=== PATIENT | male | born 1950 | race Caucasian/White ===

== ENCOUNTER 2019-07-15 14:55 | Inpatient (IN) | payer MEDICARE, OTHER ==
[~2019-07-15] VITALS: Ht 180.3 cm; Wt 88.2 kg
[2019-07-15] MEDS ORDERED: BAYER CHEWABLE81 MG PO (15:34)
[2019-07-15] MEDS ORDERED: K-TAB10 MEQ PO (15:35)
[2019-07-15] MEDS ORDERED: COREG12.5 MG PO (15:36)
[2019-07-15] MEDS ORDERED: PRAVACHOL40 MG PO (15:36)
[2019-07-15 16:05] LABS: BASOPHILS 0.4 % (0-2); EOSINOPHILS 1.6 % (0-7); HEMOGLOBIN 16.3 g/dL (13.5-17.5); IMMATURE GRANULOCYTES 0.3 % (0-5); LYMPHOCYTES 21.8 % (15-50); MCH 31.3 pg (26.0-34.0); MCHC 33.3 g/dL (31.0-37.0); MCV 94.2 fL (80.0-100.0); MEAN PLATELET VOLUME 9.7 fL (7.4-10.4); MONOCYTES 10.5 % (2-11); NEUTROPHILS 65.4 % (40-80); PLATELET COUNT 284 10x3/uL (130-400); RDW 13.4 % (11.5-14.5); WBC 7.7 10x3/uL (4.8-10.8)
[2019-07-15 16:10] LABS: CALC OSMOLALITY 276 mosm/kg (275-300); CALCIUM 9.2 mg/dL (8.5-10.1); CHLORIDE - SERUM 102 mmol/L (98-107); CREATININE - SERUM 0.9 mg/dL (0.6-1.3); GLUCOSE 89 mg/dL (74-106); POTASSIUM - SERUM 4.3 mmol/L (3.5-5.1); SODIUM 139 mmol/L (136-145); UREA NITROGEN 13 mg/dL (7-18); eGFR NON AFRICAN AMERICAN 89 mL/min (90-120)
[2019-07-15 16:13] VITALS: BMI 27.1
[2019-07-15 22:32] VITALS: BP 113/66; BMI 27.1
[2019-07-16 00:30] VITALS: BP 127/51
--- NOTE | 2019-07-16 02:39 | NUR ---
PATIENT IS RESTING QUIETLY, IV FLUIDS INFUSING. DRESSING TO LEFT FOOT REMAINS INTACT. NO EVIDENCE OF PAIN. WILL CONTINUE TO MONITO
[2019-07-16 05:00] VITALS: BP 133/69
[2019-07-16 08:37] VITALS: BP 160/83
--- NOTE | 2019-07-16 09:38 | NUR ---
PT ALERT X 4. BREATH SOUNDS CLEAR BILAT. LEFT SIDED WEAKNESS FROM PREVIOUS CVA. DRESSING TO LEFT FOOT CDI. OPEN WOUND TO RIGHT HEEL. IV TO RIGHT AC, PATENT, DRESSING CDI. FAMILY AT BEDSIDE. BED LOW, CALL LIGHT IN REACH. NO OTHER NEEDS AT THIS TIME.
[2019-07-16 13:13] VITALS: BP 127/68
[2019-07-16 16:18] VITALS: BP 145/79
--- NOTE | 2019-07-16 19:00 | NUR ---
BEDSIDE REPORT RECEIVED AND CARE OF PT ASSUMED. PT LYING IN SUPINE POSITION WATCHING TV. IV TO RIGHT AC PATENT WITH 1/2 NS INFUSING AT 50 ML/HR. DRESSINGS ON BILATERAL FEET CLEAN AND DRY. TELEMETRY IN PLACE AND READING A-FIB AT THIS ASSESSMENT.
--- NOTE | 2019-07-16 19:53 | NUR ---
HS MEDICATIONS GIVEN. WILL CONTINUE TO MONITOR FOR NEEDS.
[2019-07-16 19:58] VITALS: BP 101/55
--- NOTE | 2019-07-16 22:24 | NUR ---
GAVE MORPHINE IVP PER REQUEST FOR PAIN, PER PRN ORDER.
[2019-07-17] VITALS: BP 94/42
[2019-07-17 04:00] VITALS: BP 97/48
[2019-07-17 06:41] LABS: CALC OSMOLALITY 279 mosm/kg (275-300); CALCIUM 8.6 mg/dL (8.5-10.1); CHLORIDE - SERUM 106 mmol/L (98-107); GLUCOSE 103 mg/dL (74-106); MAGNESIUM - SERUM 2.2 mg/dL (1.8-2.4); PHOSPHOROUS 3.4 mg/dL (2.5-4.9); POTASSIUM - SERUM 3.7 mmol/L (3.5-5.1); SODIUM 140 mmol/L (136-145); UREA NITROGEN 14 mg/dL (7-18); eGFR NON AFRICAN AMERICAN 78 mL/min (90-120)
[2019-07-17 06:45] LABS: CARBON DIOXIDE 25.4 mmol/L (21.0-32.0)
[2019-07-17 06:50] LABS: BASOPHILS 0.2 % (0-2); EOSINOPHILS 1.1 % (0-7); HEMATOCRIT 42.7 % (42.0-54.0); HEMOGLOBIN 14.2 g/dL (13.5-17.5); IMMATURE GRANULOCYTES 0.2 % (0-5); LYMPHOCYTES 15.7 % (15-50); MCH 31.1 pg (26.0-34.0); MCHC 33.3 g/dL (31.0-37.0); MCV 93.6 fL (80.0-100.0); MEAN PLATELET VOLUME 9.6 fL (7.4-10.4); MONOCYTES 14.8 % (2-11); PLATELET COUNT 231 10x3/uL (130-400); RBC 4.56 10x6/uL (4.20-6.10); RDW 14.1 % (11.5-14.5); WBC 9.6 10x3/uL (4.8-10.8)
[2019-07-17 07:18] LABS: INR 1.19 (0.85-1.17)
[2019-07-17 08:40] VITALS: BP 110/58
--- NOTE | 2019-07-17 09:53 | NUR ---
PT ALERT X 4. L SIDED WEAKNESS FROM PREVIOUS CVA. BREATH SOUNDS CLEAR BILAT. IV TO RIGHT AC, PATENT, DRESSING CDI. DRESSINGS TO BILAT FEET CDI. PT REPORTING NO PAIN AT THIS TIME. BED LOW, CALL LIGHT IN REACH. NO OTHER NEEDS AT THIS TIME.
[2019-07-17 12:33] VITALS: BP 113/65
--- NOTE | 2019-07-17 17:00 | NUR ---
RESTING IN BED, NO DISTRESS NOTED, IN ROOM, IV INFUSING, SINDHU DRAIN TO SELF SUCTION, BLOODY SECRETIONS NOTED, DRESSING DRY
[2019-07-17 17:21] VITALS: BP 130/67
--- NOTE | 2019-07-17 19:00 | NUR ---
BEDSIDE REPORT RECEIVED AND CARE OF PT ASSUMED. PT UP AT [facility] AT THIS TIME HAVING BM. ASSISTED BACK TO BED AND POSITIONED FOR COMFORT. EMPTIED 20 ML OF BLOOD FROM SINDHU DRAIN. DRESSING ON LEFT FOOT WITH QUARTER SIZE SPOT OF BLOOD OOZING FROM TOE AREA...WILL MONITOR CLOSELY.
[2019-07-17 19:30] VITALS: BP 112/57
--- NOTE | 2019-07-17 20:42 | NUR ---
HS MEDICATIONS GIVEN. WILL CONTINUE TO MONITOR FOR NEEDS.
[2019-07-18] VITALS: BP 122/69
[2019-07-18 04:00] VITALS: BP 125/72
[2019-07-18 05:29] LABS: BASOPHILS 0.1 % (0-2); EOSINOPHILS 2.2 % (0-7); HEMATOCRIT 42.4 % (42.0-54.0); IMMATURE GRANULOCYTES 0.2 % (0-5); LYMPHOCYTES 16.2 % (15-50); MCH 30.8 pg (26.0-34.0); MCV 93.2 fL (80.0-100.0); MEAN PLATELET VOLUME 9.3 fL (7.4-10.4); MONOCYTES 12.4 % (2-11); NEUTROPHILS 68.9 % (40-80); PLATELET COUNT 214 10x3/uL (130-400); RBC 4.55 10x6/uL (4.20-6.10); WBC 8.5 10x3/uL (4.8-10.8)
[2019-07-18 05:41] LABS: CALC OSMOLALITY 281 mosm/kg (275-300); CALCIUM 8.7 mg/dL (8.5-10.1); CARBON DIOXIDE 26.6 mmol/L (21.0-32.0); CHLORIDE - SERUM 107 mmol/L (98-107); GLUCOSE 112 mg/dL (74-106); MAGNESIUM - SERUM 2.2 mg/dL (1.8-2.4); POTASSIUM - SERUM 3.8 mmol/L (3.5-5.1); SODIUM 141 mmol/L (136-145); UREA NITROGEN 13 mg/dL (7-18); eGFR NON AFRICAN AMERICAN 78 mL/min (90-120)
--- NOTE | 2019-07-18 06:45 | NUR ---
ALERT AND ORIENTED, RESTING IN BED WITH EYES OPEN. NO C/O PAIN. NO S/S OF ACUTE DISTRESS NOTED. UP WITH ASSIST. POD #3 LEFT FOOT 4TH TOE AMPUTATION, DRESSING SLIGHTLY BLOODY BUT INTACT. SINDHU DRAIN TO LEFT FOOT, BLOODY DRAINAGE. DRESSING TO RIGHT FOOT/ANKLE, C/D/I. HX CVA, LEFT SIDE WEAKNESS AND LEFT FACIAL DROOP PRESENT. NO SLURRED SPEECH. IV TO RIGHT AC, 1/2 NS @ 50ML/HR. SITE PATENT WITHOUT REDNESS OR SWELLING. TELEMETRY 70 PACED. PACEMAKER TO LEFT CHEST. HEEL WEIGHT BEARING TO LEFT FOOT ONLY. DENIES ANY NEEDS AT THIS TIME. CALL LIGHT IN REACH. WILL CONTINUE TO MONITOR.
[2019-07-18 08:50] VITALS: BP 144/80
--- NOTE | 2019-07-18 10:16 | NUR ---
I have reviewed this patient and I concur with the Shift Assessment completed by the Licensed Practical Nurse today this shift.
[2019-07-18 13:54] VITALS: BP 130/72
[2019-07-18 15:41] VITALS: Ht 180.3 cm; Wt 88.2 kg
[2019-07-18 16:19] VITALS: BP 125/70
--- NOTE | 2019-07-18 18:11 | NUR ---
ALERT AND ORIENTED, RESTING IN BED WITH EYES OPEN. FAMILY AT BEDSIDE. NO C/O PAIN. NO S/S OF ACUTE DISTRESS NOTED. DENIES ANY NEEDS AT THIS TIME. CALL LIGHT IN REACH. WILL CONTINUE TO MONITOR.
[2019-07-18 19:30] VITALS: BP 136/61
--- NOTE | 2019-07-18 20:00 | NUR ---
ALERT RESTING IN BED, REPORTS DR WAS HERE AND TOOK OUT DRAIN AND REDRESSED FOOT, DENIES PAIN OR NEEDS AT THSI TIME, SEE SHIFT ASSESSMENT, CALL LIGHT IN REACH
[2019-07-19] VITALS: BP 131/58
[2019-07-19 04:00] VITALS: BP 130/64
[2019-07-19 05:06] LABS: BASOPHILS 0.1 % (0-2); EOSINOPHILS 1.2 % (0-7); HEMOGLOBIN 14.9 g/dL (13.5-17.5); IMMATURE GRANULOCYTES 0.2 % (0-5); LYMPHOCYTES 6.5 % (15-50); MCH 31.4 pg (26.0-34.0); MCHC 33.9 g/dL (31.0-37.0); MCV 92.8 fL (80.0-100.0); MEAN PLATELET VOLUME 9.8 fL (7.4-10.4); MONOCYTES 6.2 % (2-11); NEUTROPHILS 85.8 % (40-80); PLATELET COUNT 254 10x3/uL (130-400); RBC 4.74 10x6/uL (4.20-6.10); RDW 13.8 % (11.5-14.5)
[2019-07-19 05:18] LABS: ANION GAP 12.9 mmol/L (8-16); CALCIUM 8.7 mg/dL (8.5-10.1); CARBON DIOXIDE 25.9 mmol/L (21.0-32.0); CREATININE - SERUM 1.1 mg/dL (0.6-1.3); MAGNESIUM - SERUM 2.1 mg/dL (1.8-2.4); PHOSPHOROUS 3.2 mg/dL (2.5-4.9); POTASSIUM - SERUM 3.8 mmol/L (3.5-5.1)
[2019-07-19 05:29] LABS: WBC 11.2 10x3/uL (4.8-10.8)
--- NOTE | 2019-07-19 06:45 | NUR ---
ALERT AND ORIENTED, SITTING UP IN BED. NO C/O PAIN. NO S/S OF ACUTE DISTRESS NOTED. UP WITH ASSIST TO BEDSIDE COMMODE. HX CVA TO LEFT SIDE, LEFT SIDE FACIAL DROOP AND LEFT ARM FLACCID. DRESSING TO LEFT FOOT CHANGED LAST NIGHT, C/D/I. IV TO RIGHT AC, 1/2 NS INFUSING @ 50ML/HR. SITE PATENT WITHOUT REDNESS OR SWELLING. DENIES ANY NEEDS AT THIS TIME. CALL LIGHT IN REACH. WILL CONTINUE TO MONITOR.
--- NOTE | 2019-07-19 08:08 | MORECARE ---
CASE MANAGEMENT DISCHARGE SUMMARY PATIENT: ANGELIQUE CRUZ UNIT: [id number] ADM DATE: 07/15/19 AGE: 69 : 49 SEX: M ROOM/BED: D.2235 AUTHOR: JANELL LO PHYSICIAN: REFERRING PHYSICIAN: KIARRA ELENA DPM DATE OF SERVICE: 07/19/19 Discharge Plan Patient Name: ANGELIQUE CRUZ [facility] [facility] 1950 Planned Disposition: Home Anticipated Discharge Date: 07/19/19 Discharge Date: Expected LOS: 4 Initial Reviewer: [email or web address] Initial Review Date: 07/19/2019 Generated: 07/19/19 9:07 am Patient Name: ANGELIQUE CRUZ Page [id number] at 0808 All edits/amendments must be made on the electronic document DICTATION DATE: 07/19/19 08 REAL ESTATE TRANSACTION COORDINATOR: PAUL 07/19/19 08 RPT#: [id number] DC DATE: STATUS: ADM IN [facility] [address] [place] [address] END OF REPORT
--- NOTE | 2019-07-19 08:14 | MORECARE ---
CASE MANAGEMENT DISCHARGE SUMMARY PATIENT: ANGELIQUE CRUZ UNIT: [id number] ADM DATE: 07/15/19 AGE: 69 : 49 SEX: M ROOM/BED: D.2235 AUTHOR: WALLY,DOC PHYSICIAN: REFERRING PHYSICIAN: KIARRA ELENA DPM DATE OF SERVICE: 07/19/19 Discharge Plan Patient Name: ANGELIQUE CRUZ Facility: [facility]:[place] : 1950 Planned Disposition: Home Anticipated Discharge Date: 07/19/19 Discharge Date: Expected LOS: 4 Initial Reviewer: [email or web address] Initial Review Date: 07/19/2019 Generated: 07/19/19 9:14 am Comments DCP- Discharge Planning Updated by [email or web address]: Andie Borges on 07/19/19 7:[address] Patient Name: ANGELIQUE CRUZ Admission Status: Elective Accout number: [id number] Admission Date: 07-15-2019 : 1950 Admission Diagnosis: Attending: KIARRA ELENA Current LOS: 4 Anticipated DC Date: 07-19-2019 Planned Disposition: Home Primary Insurance: MEDICARE A & B Discharge Planning Comments: CM met with patient to complete initial dc planning assessment. CM educated patient on the CM role and verbal consent given by patient to complete assessment. Patient lives at home with his spouse. Home address verified on face sheet. At discharge patient plans to return and feels this is a safe discharge. CM discussed availability of home health, rehab services, and medical equipment. Patient denied known discharge needs at this time. He states his assists him with his bath and changes his foot dressing. States she also sets up his medicine. States he uses a cane while out. Denies need for walker. States Dr. Elena is going to get me a walking boot. CM will continue to follow and will assist as needed with dc plans/needs. Foster Care Social Worker: Andie Borges DCPIA - Discharge Planning Initial Assessment Updated by [email or web address]: Andie Borges on 07/19/19 8:08 am * Is the patient Alert and Oriented? Yes * How many steps to enter\exit or inside your home? 1/0 * PCP Tay Mckeon * Pharmacy [facility] [address] * Preadmission Environment Home with Family * ADLs Partial Dependent * Partial ADLs (Assistance needed) Ambulation Bathing Medication Management * Equipment Cane Glucometer * List name and contact numbers for known caregivers / representatives who currently or will assist patient after discharge: Afia Cruz - spouse - [phone] * Verbal permission to speak to the caregivers and representatives has been obtained from the patient. Yes * Community resources currently utilized None Other * Additional services required to return to the preadmission environment? No * Can the patient safely return to the preadmission environment? Yes * Has this patient been hospitalized within the prior 30 days at any hospital? No Last DP export: 07/19/19 7:08 a Patient Name: ANGELIQUE CRUZ Page 38863 at 0814 All edits/amendments must be made on the electronic document DICTATION DATE: 07/19/19813 REAL ESTATE ACCOUNT EXECUTIVE: PAUL 07/19/19813 RPT#: [id number] DC DATE: STATUS: ADM IN [facility] [address] [place] [address] END OF REPORT
[2019-07-19 08:30] VITALS: BP 132/88
--- NOTE | 2019-07-19 10:36 | NUR ---
I have reviewed this patient and I concur with the Shift Assessment completed by the Licensed Practical Nurse today this shift.
[2019-07-19] MEDS ORDERED: AUGMENTIN 875-11 TAB PO (10:42)
--- NOTE | 2019-07-19 13:11 | MORECARE ---
CASE MANAGEMENT DISCHARGE SUMMARY PATIENT: ANGELIQUE CRUZ UNIT: [id number] ADM DATE: 07/15/19 AGE: 69 : 49 SEX: M ROOM/BED: D.2235 AUTHOR: WALLY,DOC PHYSICIAN: REFERRING PHYSICIAN: KIARRA ELENA DPM DATE OF SERVICE: 07/19/19 Discharge Plan Patient Name: ANGELIQUE CRUZ Facility[facility]:[place] : 1950 Planned Disposition: Home Anticipated Discharge Date: 07/19/19 Discharge Date: Expected LOS: 4 Initial Reviewer: [email or web address] Initial Review Date: 07/19/2019 Generated: 07/19/19 2:10 pm Comments DCP- Discharge Planning Updated by [id number]: Andie Borges on 07/19/19 12:[address] Patient Name: ANGELIQUE CRUZ Encounter No: [id number] : 1950 Primary Insurance: MEDICARE A & B Anticipated DC Date: 07-19-2019 Planned Disposition: Home External Planned Provider: : DCP follow-up note: Patient and family in agreement with discharge plan. No changes to plan. Case management will follow and assist as needed. Andie Katerina DCP- Discharge Planning Updated by [id number]: Andie Katerina on 07/19/19 7:[address] Patient Name: ANGELIQUE CRUZ Admission Status: Elective Accout number: [id number] Admission Date: 07-15-2019 : 1950 Admission Diagnosis: Attending: KIARRA ELENA Current LOS: 4 Anticipated DC Date: 07-19-2019 Planned Disposition: Home Primary Insurance: MEDICARE A & B Discharge Planning Comments: CM met with patient to complete initial dc planning assessment. CM educated patient on the CM role and verbal consent given by patient to complete assessment. Patient lives at home with his spouse. Home address verified on face sheet. At discharge patient plans to return and feels this is a safe discharge. CM discussed availability of home health, rehab services, and medical equipment. Patient denied known discharge needs at this time. He states his assists him with his bath and changes his foot dressing. States she also sets up his medicine. States he uses a cane while out. Denies need for walker. States Dr. Elena is going to get me a walking boot. CM will continue to follow and will assist as needed with dc plans/needs. Tone Regulator: Andie Fajardokareem DCPIA - Discharge Planning Initial Assessment Updated by [id number]: Andie Borges on 07/19/19 8:08 am * Is the patient Alert and Oriented? Yes * How many steps to enter\exit or inside your home? 1/0 * PCP Tay Mckeon * Pharmacy [facility] [address] * Preadmission Environment Home with Family * ADLs Partial Dependent * Partial ADLs (Assistance needed) Ambulation Bathing Medication Management * Equipment Cane Glucometer * List name and contact numbers for known caregivers / representatives who currently or will assist patient after discharge: Afia Cruz - spouse - [phone] * Verbal permission to speak to the caregivers and representatives has been obtained from the patient. Yes * Community resources currently utilized None Other * Additional services required to return to the preadmission environment? No * Can the patient safely return to the preadmission environment? Yes * Has this patient been hospitalized within the prior 30 days at any hospital? No Coverage Notice Reviewer: [id number] - Andie Borges Notice Issued Date-Time: 07/19/2019 13:02 Notice Type: IM Discharge Notice Notice Delivered To: Family Member Relationship to Patient: Spouse Intervention Manager Name: Afia Delivery Method: HAND - Hand Delivered Heather Days: Prior Verbal Notification: Recipient Understood Notice: Yes Recipient Signature: Yes Med Rec Note Co-signed by Attending: Coverage Notice Comment: IMM explained, signed by , given, copy placed in MR Last DP export: 07/19/19 7:14 a Patient Name: ANGELIQUE CRUZ Page 12197 at 1311 All edits/amendments must be made on the electronic document DICTATION DATE: 07/19/19 1310 FIRE APPARATUS ENGINEER: PAUL 07/19/19 1310 RPT#: [id number] DC DATE: STATUS: ADM IN [facility] [address] [place] [address] END OF REPORT
[2019-07-19 13:23] VITALS: BP 134/74
--- NOTE | 2019-07-19 13:42 | NUR ---
DISCHARGED PATIENT HOME WITH FAMILY VIA WHEELCHAIR. DISCONTINUED IV, CATHETER TIP INTACT. WENT OVER DISCHARGE INSTRUCTIONS WITH PATIENT AND SPOUSE, VERBALIZED UNDERSTANDING OF INSTRUCTIONS. DENIES ANYTHING FURTHER.
--- NOTE | 2019-07-21 16:48 | EC ---
PATIENT:ANGELIQUE CRUZ DATE OF SERVICE: 07/15/19 SEX: M MEDICAL RECORD: [id number] DATE OF : [birth year] LOCATION:D.[facility] AGE OF PATIENT: 69 ADMISSION DATE: 07/15/19 REFERRING PHYSICIAN: INTERPRETING PHYSICIAN: CONCHIS DICKENS MD ECHOCARDIOGRAM REPORT ECHO CHARGES 4 ECHO COMPLETE Date: 07/18/19 CLINICAL DIAGNOSIS: VTACH; HX:CHF ECHOCARDIOGRAPHIC MEASUREMENTS (adult normal given) AC root (d.<3.7cm) 2.7 cm LV Septum d (<1.2 cm> 0.7 cm Valve Excursion 1.8 cm LV Septum (systole) 1.3 cm Left Atria (s.<4.0cm> 4.3 cm LVPW d(<1.2cm) 1.0 cm RV (d.<2.3cm) 3.2 cm LVPW (sytole) 1.1 cm LV diastole(<5.6CM) 6.9 cm MV E-F(>70mm/sec) cm LV systole 5.7 cm LVOT Diameter 2.0 cm MV exc.(>10mm) cm Est.ejection fraction (50-75%) % DOPPLER: LVIT cm/sec A 50 cm/sec E 114 cm/sec LA cm/sec RVSP 31.8 mmHg LVOT 77 cm/sec AOP1/2T m/s Asc. Ao 131 cm/sec RVOT 63 cm/sec RA cm/sec PA 83 cm/sec AV Gradient Peak 6.7 mmHg AV Mean 3.8 mmHg AV Area 1.8 cm MV Gradient Peak 8.2 mmHg MV Mean 2.5 mmHg MV Area cm COMMENTS: Burglar Alarm Operator: Florencia KLEIN Doughnut Glazier: 1 Dr. Dickens TAPE# PACS Pericardial Effusion N DATE OF SERVICE: 07/18/2019 FINDINGS: 1. Left ventricular chamber was mildly dilated. Left ventricular systolic function is preserved at 55% to 60%. 2. Left atrium is enlarged at 4.3 cm. Right atrium and right ventricle chamber sizes are within normal limits. 3. Valvular structures have normal structure and motion. 4. Doppler interrogation reveals mild aortic insufficiency, mild mitral regurgitation, mild tricuspid regurgitation, no other valvular insufficiency or ECHOCARDIOGRAM REPORT [id number] ANGELIQUE CRUZ stenosis. Pulmonary systolic pressure estimated at 32 mmHg. 5. No evidence of pericardial effusion or left ventricular thrombus. TRANSINT:[id number] Voice Confirmation ID: [id number] DOCUMENT ID: [id number] CONCHIS DICKENS MD at 1648 CC: [id number] DICTATION DATE: 07/18/19 162 UNIFORM DESIGNER: 07/18/19 1712 DIS IN 07/19/19 [facility] [address] [place] [id number]
--- NOTE | 2019-07-25 09:17 | MORECARE ---
CASE MANAGEMENT DISCHARGE SUMMARY PATIENT: ANGELIQUE CRUZ UNIT: [id number] ADM DATE: 07/15/19 AGE: 69 : 49 SEX: M ROOM/BED: D.2235 AUTHOR: WALLY,DOC PHYSICIAN: REFERRING PHYSICIAN: KIARRA ELENA DPM DATE OF SERVICE: 07/25/19 Discharge Plan Patient Name: ANGELIQUE CRUZ Facility: [facility]:[place] : 1950 Planned Disposition: Home Anticipated Discharge Date: 07/19/19 Discharge Date: 07/19/2019 Expected LOS: 4 Initial Reviewer: [email or web address] Initial Review Date: 07/19/2019 Generated: 07/25/19 10:16 am Comments DCP- Discharge Planning Updated by [id number]: Andie Borges on 07/19/19 12:[address] Patient Name: ANGELIQUE CRUZ Encounter No: [id number] : 1950 Primary Insurance: MEDICARE A & B Anticipated DC Date: 07-19-2019 Planned Disposition: Home External Planned Provider: : DCP follow-up note: Patient and family in agreement with discharge plan. No changes to plan. Case management will follow and assist as needed. Andie Borges DCP- Discharge Planning Updated by [id number]: Andie Borges on 07/19/19 7:[address] Patient Name: ANGELIQUE CRUZ Admission Status: Elective Accout number: [id number] Admission Date: 07-15-2019 : 1950 Admission Diagnosis: Attending: KIARRA ELENA Current LOS: 4 Anticipated DC Date: 07-19-2019 Planned Disposition: Home Primary Insurance: MEDICARE A & B Discharge Planning Comments: CM met with patient to complete initial dc planning assessment. CM educated patient on the CM role and verbal consent given by patient to complete assessment. Patient lives at home with his spouse. Home address verified on face sheet. At discharge patient plans to return and feels this is a safe discharge. CM discussed availability of home health, rehab services, and medical equipment. Patient denied known discharge needs at this time. He states his assists him with his bath and changes his foot dressing. States she also sets up his medicine. States he uses a cane while out. Denies need for walker. States Dr. Elena is going to get me a walking boot. CM will continue to follow and will assist as needed with dc plans/needs. Lip Of Shank Cutter: Andie Fajardokareem DCPIA - Discharge Planning Initial Assessment Updated by [email or web address]: Andie Borges on 07/19/19 8:08 am * Is the patient Alert and Oriented? Yes * How many steps to enter\exit or inside your home? 1/0 * PCP Tay Mckeon * Pharmacy [facility] [address] * Preadmission Environment Home with Family * ADLs Partial Dependent * Partial ADLs (Assistance needed) Ambulation Bathing Medication Management * Equipment Cane Glucometer * List name and contact numbers for known caregivers / representatives who currently or will assist patient after discharge: Afia Cruz - spouse - [phone] * Verbal permission to speak to the caregivers and representatives has been obtained from the patient. Yes * Community resources currently utilized None Other * Additional services required to return to the preadmission environment? No * Can the patient safely return to the preadmission environment? Yes * Has this patient been hospitalized within the prior 30 days at any hospital? No Coverage Notice Reviewer: [id number] - Andie Borges Notice Issued Date-Time: 07/19/2019 13:02 Notice Type: IM Discharge Notice Notice Delivered To: Family Member Relationship to Patient: Spouse Software Engineering Project Manager Name: Afia Delivery Method: HAND - Hand Delivered Heather Days: Prior Verbal Notification: Recipient Understood Notice: Yes Recipient Signature: Yes Med Rec Note Co-signed by Attending: Coverage Notice Comment: IMM explained, signed by , given, copy placed in MR Last DP export: 07/19/19 12:11 p Patient Name: ANGELIQUE CRUZ Page 23662 at 0917 All edits/amendments must be made on the electronic document DICTATION DATE: 07/25/19915 WORKERS COMPENSATION CLAIMS SPECIALIST: PAUL 07/25/19915 RPT#: [id number] DC DATE:07/19/19 STATUS: DIS IN [facility] [address] [place] [address] END OF REPORT
== END 2019-07-19 13:45 | disposition home or self-care (01) | DRG 628 ==
LOC: D.OPS 14:55 → D.MS 22:13 → D.OPS 22:14 → D.MS 07-19 13:45
PROVIDERS: Anesthesiology; Family Medicine; ADMIT Podiatrist Foot & Ankle Surgery; ATTEND Podiatrist Foot & Ankle Surgery
PROC: 0QBP0ZZ Excision of Left Metatarsal, Open Approach (ICD-10-PCS; principal; 2019-07-15 14:45)
DX: E11.69 Type 2 diabetes mellitus with other specified complication (principal); A48.0 Gas gangrene; E11.52 Type 2 diabetes mellitus with diabetic peripheral angiopathy with gangrene; I47.2 Ventricular tachycardia; M86.9 Osteomyelitis, unspecified; I48.20 Chronic atrial fibrillation, unspecified; Z95.0 Presence of cardiac pacemaker; I10 Essential (primary) hypertension; E78.5 Hyperlipidemia, unspecified; I25.5 Ischemic cardiomyopathy; I25.10 Atherosclerotic heart disease of native coronary artery without angina pectoris

== ENCOUNTER → 2019-07-15 16:45 | Outpatient (CLI) | payer MEDICARE, OTHER ==
[2019-07-15 16:13] VITALS: BMI 27.1
[~2019-07-15 16:45] MED LIST: AUGMENTIN 875-11 TAB PO; BAYER CHEWABLE81 MG PO; COREG12.5 MG PO; K-TAB10 MEQ PO; PRAVACHOL40 MG PO
== END | disposition home or self-care (01) ==
LOC: D.LABREF 16:45
PROVIDERS: ATTEND Podiatrist Foot & Ankle Surgery
DX: L03.116 Cellulitis of left lower limb (principal)

== ENCOUNTER → 2020-01-25 17:50 | Outpatient (CLI) | payer MEDICARE, OTHER ==
[2019-07-18 15:41] VITALS: BMI 27.1
== END | disposition home or self-care (01) ==
LOC: D.LABREF 17:50
PROVIDERS: ATTEND Podiatrist Foot & Ankle Surgery
DX: B07.0 Plantar wart (principal)